=== PATIENT | male | born 1995 | race Hispanic/Latino ===

== ENCOUNTER 2021-11-11 01:01 | Emergency (ER) | payer OTHER ==
[~2021-11-11] VITALS: Ht 165.1 cm; Wt 75.7 kg
[2021-11-11 01:04] VITALS: BP 127/73
[2021-11-11 01:21] LABS: APPEARANCE,URINE HAZY (CLEAR); BILIRUBIN,URINE Negative (NEGATIVE); COLOR,URINE Yellow (YELLOW); GLUCOSE, URINE (UA) Negative (NEGATIVE); KETONES,URINE Trace mg/dL (NEGATIVE); LEUKOCYTE ESTERASE ,URINE Large (NEGATIVE); NITRATE,URINE Negative (NEGATIVE); OCCULT BLOOD,URINE Negative (NEGATIVE); PH,URINE 6.5 (5.0-8.0); PROTEIN,URINE Negative (NEGATIVE)
[2021-11-11 01:27] LABS: RBC,URINE 0-1 /HPF (0-1)
[2021-11-11 01:28] LABS: BACTERIA,URINE Few /HPF (None Seen); MUCUS,URINE Rare LPF (None Seen); SQUAMOUS EPITHELIAL CELL,UR 0-2 /HPF (0-2); WBC,URINE 51-100 /HPF (0-1)
[2021-11-11] MEDS ORDERED: CEFTRIAXONE 1G VIAL ONE (01:51)
[2021-11-11] MEDS ORDERED: AZITHROMYCIN 250 MG TABLET PO ONE ×2 (01:52→02:00)
[2021-11-11] MEDS ORDERED: CEFTRIAXONE 1G VIAL IM ONE (02:00)
== END 2021-11-11 02:06 | disposition home or self-care (01) ==
LOC: EDH 01:01
DX: A64 Unspecified sexually transmitted disease (principal)
CPT/HCPCS: 81001; 87088; 87486; 87797; 96372; 99283; J0696